=== PATIENT | female | born 1985 | race Caucasian/White ===

== ENCOUNTER 2018-10-29 09:04 | Emergency (ER) | payer BC, OTHER ==
--- NOTE | 2018-10-29 10:20 | ED ---
HPI Chest Pain - HPI Summary HPI Summary: This pt is a 33 y/o female presenting to [facility] c/o intermittent left arm pain x5 days. Additionally she notes she has felt chest tightness, palpitations ( characterized as fast), and nausea since yesterday. She reports that she called her PCP today and was advised to come to the ED. Pt reports her pain in her left arm starts like a "ball" on her upper arm and radiates down her arm accompanied with sensation of numbness. Denies difficulty moving left arm. She feels a "twinge" with moving her left arm. She notes that last night she was lying in bed and felt her heart racing, her monitor showed max HR of 115 bpm. Pt notes that yesterday and today she has felt chest tightness. She additionally reports she is very anxious right now. Last night and this morning she also had nausea. Denies SOB, lightheadedness, dizziness, vomiting. Pt reports she is worried her arm pain is related to her heart. PMHx: overweight, miscarriage in Jul 2018. 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 Denies tobacco use Denies any FHx. - History of Current Complaint Chief Complaint: EDDysrhythmPalp Hx Obtained From: Patient Onset/Duration: Started Days Ago, Still Present Timing: Lasting Days Current Severity: Moderate Pain Intensity: 5 Pain Scale Used: 0-10 Numeric Chest Pain Location: Diffuse Chest Pain Radiates: No Character: Tightness Aggravating Factor(s): Nothing Alleviating Factor(s): Nothing Associated Signs and Symptoms: Positive: Chest Pain, Anxiety, Numbness - left arm, Nausea, Other: - POS: left arm pain. Negative: Dizziness, Shortness of Breath, Fever, Chills, Lightheadedness, Vomiting - Allergy/Home Medications Allergies/Adverse Reactions: Allergies Allergy/AdvReac Type Severity Reaction Status Date / Time Penicillins Allergy Rash Verified 10/29/18 09:08 PMH/Surg Hx/FS Hx/Imm Hx Endocrine/Hematology History: Reports: Hx Diabetes - Gestational Cardiovascular History: Denies: Hx Hypertension - Immunization History Date of Tetanus Vaccine: UTD Date of Influenza Vaccine: Jun 2018 Infectious Disease History: No Infectious Disease History: Denies: Traveled Outside the [place] in Last 30 Days - Family History Known Family History: Negative: Cardiac Disease, Diabetes - Social History Occupation: Employed Full-time - script coordinator in [place] Alcohol Use: None Substance Use Type: Reports: None Smoking Status (MU): Never Smoked Tobacco Review of Systems Negative: Fever, Chills Positive: Palpitations, Chest Pain Negative: Shortness Of Breath Positive: Nausea. Negative: Vomiting Musculoskeletal: Other - POS: left arm pain Neurological: Other - NEG: dizziness, lightheadedness Positive: Numbness - left arm Positive: Anxious All Other Systems Reviewed And Are Negative: Yes Physical Exam - Summary Physical Exam Summary: Appearance: Well-appearing, Well-nourished, lying in bed comfortable Skin: Warm, dry, no obvious rash Eyes: sclera anicteric, no conjunctival pallor ENT: mucous membranes moist Neck: deferred Respiratory: No signs of respiratory distress Cardiovascular: Appears well perfused, pulses are nml Abdomen: deferred Musculoskeletal: Moving all 4 extremities without obvious discomfort Neurological: Awake and alert, mentation is normal, speech is fluent and appropriate Psychiatric: affect is normal, does not appear anxious or depressed Triage Information Reviewed: Yes Vital Signs On Initial Exam: Initial Vitals Temp Pulse Resp BP Pulse Ox 99.2 F 116 16 136/95 97 10/29/18 09:06 10/29/18 09:06 10/29/18 09:06 10/29/18 09:06 10/29/18 09:06 Vital Signs Reviewed: Yes Diagnostics - Vital Signs Vital Signs Temp Pulse Resp BP Pulse Ox 10/29/18 09:06 99.2 F 116 16 136/95 97 - Laboratory Result Diagrams: 10/29/18 10:39 10/29/18 10:39 Lab Statement: Any lab studies that have been ordered have been reviewed, and results considered in the medical decision making process. - Radiology Chest XR Radiology Interpretation Completed By: Radiologist Summary of Radiographic Findings: IMPRESSION: No active cardiopulmonary disease is noted. Dr. Reynaga has reviewed this report. - EKG 09:15 Cardiac Rate: Tachycardia - at 105 bpm EKG Rhythm: Sinus Tachycardia Summary of EKG Findings: P waves, QRS complex, and T waves are within normal limits, T waves and intervals are normal, no ischemic changes. This is a normal EKG Re-Evaluation - Re-Evaluation First Eval Re-Evaluation Time: 11:40 Comment: I reviewed the lab and XR results with the pt. She will be discharged home. Chest Pain Course/Dx - Course Assessment/Plan: Pt is a 33 y/o female who presents with intermittent left arm pain x5 days. Additionally she notes she has felt chest tightness, palpitations (characterized as fast), and nausea since yesterday. She additionally reports she is very anxious right now. Pt reports she is worried her arm pain is related to her heart. Chest XR is negative. Lab work only remarkable for glucose of 169. Pt will be discharged home with follow up from her PCP for a fasting blood sugar in the future. She was given strict return to the ED instructions. Pt understands and agrees. - Diagnoses Provider Diagnoses: Non-cardiac chest pain Discharge - Sign-Out/Discharge Documenting (check all that apply): Patient Departure - Discharge home Patient Received Moderate/Deep Sedation with Procedure: No - Discharge Plan Condition: Good Disposition: HOME Patient Education Materials: Noncardiac Chest Pain (ED) Referrals: Kevin Quinteros MD [Primary Care Provider] - Additional Instructions: The tests we ran today did not show any sign of a heart problem. Your blood sugar was slightly elevated, but not so high as to diagnose diabetes, particularly since it was not a fasting specimen. I would recommend having your doctor do a fasting blood sugar in the near future. - Billing Disposition and Condition Condition: GOOD Disposition: Home - Attestation Statements Document Initiated by Anthony: Yes Documenting Melloibe: Macie Panchal Provider For Whom Anthony is Documenting (Include Credential): Nate Reynaga MD Scribe Attestation: Macie Gonzales, scribed for Nate Reynaga MD on 10/29/18 at 1917. Scribe Documentation Reviewed: Yes Provider Attestation: The documentation as recorded by the Macie sharp accurately reflects the service I personally performed and the decisions made by me, Nate Reynaga MD Status of Scrdexter Document: Viewed
[2018-10-29 11:00] LABS: Hematocrit 36 % (35-47); Mean Corpuscular HGB Conc 33 g/dl (31-36); Mean Corpuscular Hemoglobin 28 pg (27-31); Mean Corpuscular Volume 84 fL (80-97); Mean Platelet Volume 8.8 fL (7.4-10.4); Platelet Count 277 10^3/ul (150-450); Red Blood Count 4.29 10^6/ul (4.00-5.40); Red Cell Distribution Width 14 % (10.5-15); White Blood Count 9.7 10^3/ul (3.5-10.8)
[2018-10-29 11:01] LABS: ABS Basophils 0.1 10^3/ul (0-0.2); ABS Eosinophils 0.1 10^3/ul (0-0.6); ABS Lymphocytes 1.8 10^3/ul (1.0-4.8); ABS Monocytes 0.6 10^3/ul (0-0.8); ABS Neutrophils 7.1 10^3/ul (1.5-7.7); ABS Nucleated RBC 0 10^3/ul; Eosinophil % 1.2 %; Lymphocyte % 19.1 %; Nucleated Red Blood Cells % 0
[2018-10-29 11:12] LABS: HCG Pregnancy < 0.60 mIU/mL
[2018-10-29 11:19] LABS: ALT 14 U/L (7-52); AST 16 U/L (13-39); Albumin 4.5 g/dL (3.2-5.2); Albumin/Globulin Ratio 1.4 (1-3); Alkaline Phosphatase 53 U/L (34-104); Anion Gap 9 mmol/L (2-11); BUN/Creatinine Ratio 19.3 (8-20); Blood Urea Nitrogen 11 mg/dL (6-24); CO2 Carbon Dioxide 23 mmol/L (22-32); Calcium 9.6 mg/dL (8.6-10.3); Chloride 106 mmol/L (101-111); EGFR African American 146.9 (>60); EGFR Non-African American 121.4 (>60); Globulin 3.2 g/dL (2-4); Glucose 169 mg/dL (70-100); Sodium 138 mmol/L (135-145); Total Protein 7.7 g/dL (6.4-8.9)
[2018-10-29 12:22] VITALS: BP 128/85
== END 2018-10-29 11:42 | disposition home or self-care (01) ==
LOC: ED 09:04
DX: R07.9 Chest pain, unspecified (principal); F41.9 Anxiety disorder, unspecified; R11.0 Nausea; R00.2 Palpitations
CPT/HCPCS: 36415; 71046; 80053; 84484; 84702; 85025; 85379; 93005; 99282

== ENCOUNTER 2020-02-23 13:53 | Inpatient (IN) ==
[2020-02-23] MEDS ORDERED: Lactated Ringers 1000 ml BAG 1,000 ML IV ONE ×2 (14:55→20:55)
[2020-02-23] MEDS ORDERED: Lactated Ringers 1000 ml BAG 1,000 ML IV SCH ×3 (15:00→23:45)
[2020-02-23] MEDS ORDERED: Oxytocin in LR 20 UNITS/1,000 ML BAG IVPB SCH (15:00)
[2020-02-23 16:30] LABS: Albumin 3.4 g/dL (3.2-5.2); Albumin/Globulin Ratio 1.2 (1-3); Calcium 9.5 mg/dL (8.6-10.3); EGFR African American 137.7 (>60); EGFR Non-African American 113.8 (>60); Globulin 2.9 g/dL (2-4); Potassium 4.2 mmol/L (3.5-5.0); Total Bilirubin 0.2 mg/dL (0.2-1.0); Total Protein 6.3 g/dL (6.4-8.9); Uric Acid 8.1 mg/dL (2.3-6.6)
[2020-02-23 17:02] LABS: ABS Eosinophils 0.2 10^3/ul (0-0.6); ABS Lymphocytes 2.2 10^3/ul (1.0-4.8); ABS Monocytes 0.9 10^3/ul (0-0.8); Eosinophil % 2.1 %; Hematocrit 35 % (35-47); Hemoglobin 12.1 g/dL (12.0-16.0); Lymphocyte % 23.6 %; Mean Corpuscular HGB Conc 35 g/dL (31-36); Mean Corpuscular Hemoglobin 30 pg (27-31); Mean Corpuscular Volume 88 fL (80-97); Mean Platelet Volume 11.7 fL (7.4-10.4); Platelet Count 139 10^3/uL (150-450); Red Blood Count 3.96 10^6 /uL (3.70-4.87); Red Cell Distribution Width 16 % (10-15); White Blood Count 9.4 10^3/uL (3.5-10.8)
[2020-02-23 18:54] LABS: Urine Benzodiazepine Screen None Detected (None Detect); Urine Opiates Screen None Detected (None Detect)
[2020-02-23] MEDS ORDERED: OBEPIDURAL 250 ML EPIDURAL ONE (20:15)
[2020-02-23] MEDS ORDERED: EPHEDrine (Pressors) 50 MG/ML VIAL IV PUSH PRN ×2 (20:55)
[2020-02-23] MEDS ORDERED: Sodium Citrate/Citric Acid LIQ 15 ML UDC PO PRN (20:55)
[2020-02-23] MEDS ORDERED: Phenylephrine 40 mcg/mL 10mL (400mcg) SYRINGE IV PUSH PRN ×2 (20:55)
[2020-02-23] MEDS ORDERED: OBEPIDURAL 250 ML EPIDURAL SCH (21:00)
[2020-02-23 21:10] LABS: Activated Partial Thrombo Time 23.7 seconds (26.0-38.0); INR 0.91 (0.82-1.09)
[2020-02-23] MEDS ORDERED: Witch Hazel PAD JAR TOPICAL PRN (23:26)
[2020-02-23] MEDS ORDERED: Glycerin ADULT 2.4 gm SUPP PR PRN (23:26)
[2020-02-23] MEDS ORDERED: Dibucaine 1% OINT 28.35 GM TUBE PR PRN (23:26)
[2020-02-24] MEDS ORDERED: Lidocaine 1% VIAL 10 MG/ML VIAL ONE (04:07)
[2020-02-24 07:08] LABS: ABS Basophils 0.1 10^3/ul (0-0.2); ABS Eosinophils 0.3 10^3/ul (0-0.6); ABS Lymphocytes 3.2 10^3/ul (1.0-4.8); Eosinophil % 2.1 %; Hematocrit 33 % (35-47); Lymphocyte % 23.6 %; Mean Corpuscular HGB Conc 34 g/dL (31-36); Mean Corpuscular Hemoglobin 30 pg (27-31); Mean Corpuscular Volume 89 fL (80-97); Mean Platelet Volume 10.7 fL (7.4-10.4); Platelet Count 121 10^3/uL (150-450); Red Cell Distribution Width 17 % (10-15); White Blood Count 13.4 10^3/uL (3.5-10.8)
[2020-02-25 09:12] VITALS: BP 136/79
[2020-02-25] MEDS ORDERED: RHO D Immune Globulin (HUMAN) 300 MCG = 1,500 I.U. INJ IM ONE (10:15)
== END 2020-02-25 12:14 | disposition home or self-care (01) | DRG 807 ==
LOC: MCHOBOUT 13:53 → MCHOB 14:46
PROVIDERS: ADMIT Obstetrics & Gynecology; ATTEND Obstetrics & Gynecology